=== PATIENT | female | born 1990 ===

== ENCOUNTER → 2020-02-14 | Outpatient (REF) | payer OTHER ==
[2020-02-14 15:02] LABS: PLATELET COUNT, AUTOMATED 250 10^3/uL (150-450)
[2020-02-14 15:08] LABS: HCG, SERUM QUALITATIVE NEGATIVE (NEGATIVE)
[2020-02-14 15:14] LABS: INR 0.99; PROTHROMBIN TIME 12.8 SECONDS (11.8-14.0)
[2020-02-14 15:15] LABS: PARTIAL THROMBOPLASTIN TIME 30.5 SECONDS (25.0-38.4)
== END ==
LOC: M LABDRAW1 14:39
PROVIDERS: ATTEND Physical Medicine & Rehabilitation
DX: M43.16 Spondylolisthesis, lumbar region (principal)